=== PATIENT | male | born 1955 | race Caucasian/White ===

== ENCOUNTER 2018-02-24 06:12 | Inpatient (IN) ==
[~2018-02-24 06:12] MED LIST: Vancomycin 1,000 MG, Sodium Chloride IRRigation 1,000 ML IR ONE
[2018-02-24] MEDS ORDERED: CeFAZolin Syr 2,000MG/20 ML 2,000 MG/20 ML SYRINGE IVPB ONE (06:30)
[2018-02-24] MEDS ORDERED: Lidocaine -MPF 1% 2 ML VIAL ID ONE (06:32)
[2018-02-24] MEDS ORDERED: Albuterol 2.5 MG/3 ML NEBULIZER IH ONE (06:32)
[2018-02-24] MEDS ORDERED: Ringers Solution, Lactated 1,000 ML IVC SCH (06:45)
[2018-02-24] MEDS ORDERED: Bupivacaine-MPF 0.25% 10 ML VIAL ONE (07:09)
[2018-02-24] MEDS ORDERED: Heparin 1,000 UNITS/500 mL 1,000 ML ONE (07:09)
[2018-02-24] MEDS ORDERED: Heparin 1,000 UNITS/500 mL 500 ML ONE ×2 (07:10→07:38)
[2018-02-24] MEDS ORDERED: *HR* Propofol 200 MG/20 ML VIAL IVP ONE (07:12)
[2018-02-24] MEDS ORDERED: *HR* Rocuronium Bromide 50 MG/5 ML VIAL ONE (07:12)
[2018-02-24] MEDS ORDERED: *HR* Midazolam HCl 2 MG/2 ML VIAL ONE (07:12)
[2018-02-24] MEDS ORDERED: Lidocaine -MPF 2% 2 ML VIAL ONE ×2 (07:12→07:49)
[2018-02-24] MEDS ORDERED: Ketorolac 30 MG/ML VIAL ONE (07:12)
[2018-02-24] MEDS ORDERED: Dexamethasone 4 MG/ML VIAL ONE (07:12)
[2018-02-24] MEDS ORDERED: Ondansetron 4 MG/2 ML VIAL ONE (07:12)
[2018-02-24] MEDS ORDERED: *HR* FentaNYL (PF) 100 MCG/2 ML VIAL ONE ×2 (07:12→10:34)
[2018-02-24] MEDS ORDERED: Lidocaine -MPF 4% 5 ML AMPUL ONE (07:13)
--- NOTE | 2018-02-24 07:19 | Anesthesia Evaluation PreOp ---
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 History: TIA (?) Other Medical History: Diabetes Type II (oral medications only) Anesthesia History: No Prior Anesthetic Complications Alcohol Use: none Drug use: none Medications and Allergies Acetaminophen [Tylenol] 1,000 mg PO Q6HR PRN #90 tablet 02/10/18 [Rx] Aspirin [Adult Aspirin] 81 mg PO DAILY 02/10/18 [History] Enoxaparin [Lovenox *PHARMACY [facility] BASED*] 100 mg SQ DAILY 02/10/18 [History] Gabapentin [Neurontin] 300 mg PO TID 02/10/18 [History] Lisinopril [Zestril] 20 mg PO BID 02/10/18 [History] Metformin HCl [Fortamet] 500 mg PO BID 02/10/18 [History] Simvastatin [Zocor] 40 mg PO HS 02/10/18 [History] Warfarin [Coumadin] 5 mg PO 1800 02/10/18 [History] cloNIDine HCl [CloNIDine HCl] 0.1 mg PO BID 02/10/18 [History] 3 Allergy/AdvReac Type Severity Reaction Status Date / Time No Known Allergies Allergy Verified 02/10/18 06:47 - Meds/Allergy Pre-op Review Medications Reviewed: Yes Allergies Reviewed: Yes Beta Blockers on Current Med List: No Anesthesia Results - Labs Laboratory Tests 02/06/18 02/06/18 02/10/18 12:37 12:37 07:07 WBC 9.7 Hgb 16.9 Hct 49.5 Plt Count 273 PT 11.0 D INR 1.0 D Sodium 138 Potassium 4.4 Chloride 103 Carbon Dioxide 30 H BUN 12 Creatinine 0.93 Est GFR ( Amer) > 60 Est GFR (Non-Af Amer) > 60 BUN/Creatinine Ratio 13 Glucose 95 Est Mean Plasma Glucose Hemoglobin A1c Calculated Osmolality 286 Calcium 10.0 02/23/18 14:37 WBC Hgb Hct Plt Count PT INR Sodium Potassium Chloride Carbon Dioxide BUN Creatinine Est GFR ( Amer) Est GFR (Non-Af Amer) BUN/Creatinine Ratio Glucose Est Mean Plasma Glucose 154 Hemoglobin A1c 7.0 H Calculated Osmolality Calcium - Imaging EKG: report reviewed, image reviewed (SINUS RHYTHM INDETERMINATE AXIS INCOMPLETE RIGHT BUNDLE BRANCH BLOCK [90+ ms QRS DURATION, TERMINAL R IN V1/V2, 40+ ms S IN I/aVL/V4/V5/V6]) Anesthesia Exam Last Vital Signs Temp 97.7 F 02/24/18 06:37 Pulse 77 02/24/18 06:37 Resp 18 02/24/18 07:02 BP 125/81 02/24/18 07:02 Pulse Ox 97 02/24/18 07:02 Weight: 93 kg NPO (# of Hours): > 8 hrs - HEENT Pupil (Motor): Pupils equal, EOMI Mallampati: II Teeth: Missing, Poor dentition Oral Opening: Greater than 3 - SAP ARCHITECT LOC: Oriented - Cardiac Rhythm: Regular Murmur: None - Pulmonary Breath Sounds: bilateral Clear Respiratory Effort: Symmetrical Anesthesia Assess/Plan ASA Score: 3 Modified Grant Scale for Level of Consciousness: Cooperative, oriented, and tranquil Anesthetic Plan: General Monitoring Plan: Standard Monitors, A-Line Recovery Plan: PACU
--- NOTE | 2018-02-24 07:29 | History & Physical Report ---
Date of Encounter: 02/24/18 Time of Encounter: 07:25 24 Hour HP Update - Instructions Instructions: If the History and Physical is less than 30 days old and was completed prior to A.M. admission and or procedure and has NOT been updated on calendar day of procedure please complete this update prior to performing procedure. - Update Patient reports changes in Medical Condition: No Changes in examination, assessment, or condition: No Changes in Medication: No Preop tests/diagnostics Reviewed: Yes Surgery Remains Indicated: Yes Consent for Planned Operative Procedure(s) Verified: Yes - Pre-Operative Checklist Preoperative Checklist Indicated: Yes Prophylactic Antibiotic Ordered: Yes (vancomycin due to risk of mrsa) Home Medications Include Beta Kelly: No Beta Kelly Taken Today (Day of Surgery): No Beta Kelly Taken Yesterday (Day Prior to Surgery): No Is VTE Prophylaxis Indicated?: Yes
[2018-02-24] MEDS ORDERED: Isovue-300 50 ML VIAL IVP ONE (07:43)
[2018-02-24] MEDS ORDERED: *HR* Phenylephrine 10 MG/ML VIAL ONE (08:29)
[2018-02-24] MEDS ORDERED: EPHEDrine 50 MG/ML VIAL ONE (08:39)
[2018-02-24] MEDS ORDERED: Vancomycin 1,000 MG VIAL ONE (08:49)
[2018-02-24] MEDS ORDERED: *HR* Morphine 2 MG/ML SYRINGE IVP PRN (10:49)
[2018-02-24] MEDS ORDERED: Albuterol 2.5 MG/3 ML NEBULIZER IH PRN (10:49)
[2018-02-24] MEDS ORDERED: *HR* Promethazine 25 MG/ML VIAL IVP PRN (10:49)
[2018-02-24] MEDS ORDERED: *HR* OxyCODONE Immed Rel 5 MG TABLET PO PRN ×2 (10:49→11:40)
[2018-02-24] MEDS ORDERED: Neostigmine Methylsulfate 3 MG/3 ML SYRINGE ONE (10:59)
--- NOTE | 2018-02-24 11:39 | Operative Note ---
Date of procedure: 02/24/18 Pre-op diagnosis: Peripheral vascular disease with disabling claudication Post-op diagnosis: same Procedure: 1. Abdominal aortogram 2. Left common iliac artery angioplasty with 8 x 40mm balloon. 3. Left external iliac artery 8 x 57mm stent placement. 4. Left common femoral to right common femoral artery bypass with 6mm PTFE graft. 5. Left deep femoral endarterectomy. 6. Right common femoral and deep femoral endarterectomy. Complications: None Anesthesia: GETA Surgeon: Nitin New Was there an seed laboratory assistant present: No Estimated blood loss (cc): 50 Specimen: bilateral femoral plaque Condition: stable Disposition: PACU Procedure in Detail: Indications: The patient is a 62year old male with a history of hypertension, hyperlipidemia, COPD and tobacco abuse. He also has a history of peripheral vascular disease with disabling claudication. The patient presented with severe symptoms. His right was a affected greater than his left. He underwent endograft which revealed occluded right common and external and common femoral stents that had been previously placed at another hospital. The angiogram also revealed left iliac artery stenosis. Revascularization was recommended to reduce his symptoms. Procedure: The patient was identified in the preoperative area. The risks, benefits, and alternatives of the procedure were discussed and all questions were answered. The patient was taken to the operating room and placed in supine position on the operating room table. After the induction of general endotracheal anesthesia, he was cleaned and draped in normal sterile fashion. An oblique incision was made over the right groin sharply. Hemostasis was obtained with electrocautery. Through a process of blunt, sharp, and electrocautery dissection, the right femoral vessels were dissected circumferentially and surrounded with vessel loops. An oblique incision was then made over the left groin sharply. Hemostasis was obtained with electrocautery. Through a process of blunt, sharp, and electrocautery dissection, the left femoral vessels were dissected circumferentially and surrounded with vessel loops. A graft was tunneled between the right and left femoral incisions. The patient then received 5000 units of heparin intravenously. After waiting adequate time for the heparin to circulate, the left femoral vessels were occluded by applying tension to the vessels loops. A large-bore needle was used to cannulate left common femoral artery. A Naviswiss wire was advanced into the aorta under fluoroscopic view. The needle was exchanged for a 6-Yoruba sheath. The sheath was flushed. Retrograde angiography was performed revealing common iliac artery stenosis as well as external iliac artery stenosis on the left. An 8 x 40 mm balloon was then advanced into the left common iliac artery. He had a pre-existing left common iliac stent. Balloon angioplasty was then performed on this test. Admitted on the revealed no evidence of hemodynamically residual stenosis within the stent. The patient separate left external iliac artery stenosis measuring proximal 70%. An 8 x 57 mm stent was selected. The stent was advanced over the wire position of carotid stenosis. Stent was then deployed in the usual fashion. A completion retrograde and a gram was not performed revealing no evidence of hemodynamically residual left external iliac stenosis. The wire and sheath were removed. A longitudinal incision was made in the left common femoral artery inclusive of the arterial puncture site. Strong pulsatile flow was noted from the external iliac artery. However, minimal retrograde flow was noted from the left deep femoral artery due to extensive stenotic deep femoral artery plaque. Using a dental freer, a left deep femoral artery endarterectomy were then performed. The endpoints was inspected and no elevated flap was noted. The lumen was flushed with heparinized saline. The graft was cut to fit the arteriotomy. The graft was then sutured in place with a running 6-0 Prolene. Flow was restored in the vessels were flushed through the graft. Heparinized saline was infused into the graft lumen. The graft was clamped with an atraumatic clamp. Flow was restored in the left femoral vessels. Tension was applied to rightoral artery vessel loops. An arteriotomy was made in the right common femoral artery. At this time, it was noted that nearly occlusive plaque extended from , femoral arteryough the deep and superficial femoral artery origins. Using a dental freer,right common and deep femoral endarterectomy was performed. Upon removal of the plaque, no elevated flaps were noted. Release of the vessel loops revealed collateral antegrade and retrograde flow. The loops were then applied to tension. The distal end of the graft was cut to fit the arterial defect. The graft was anastamosed with a running 6-0 Prolene. Prior to completing the anastamosis, right femoral vessels were flushed through the graft anastamosis and heparin was flushed into the lumen. The anastamosis was completed and flow was restored in the left lower extremity. Thrombin and gelfoam were used at the proximal anastamosis. Polyphasic signals were noted distal to the anastamoses. The wounds were irrigated with antibiotic-containing saline. Platelet rich and platelet poor plasma were infused into the wounds. Meticulous hemostasis was obtained throughout the wound with electrocautery. Wounds were reapproximated with layers of 2-0 and 3-0 Vicryl. Skin was reapproximated with 3-0 Monocryl. Sterile dressing was applied. The patient was extubated and taken to recovery room in stable condition.
[2018-02-24] MEDS ORDERED: Ondansetron 4 MG/2 ML VIAL IVP PRN ×2 (11:40→13:04)
[2018-02-24] MEDS ORDERED: *HR* HYDROcodone/Acet 5/325 mg TABLET PO PRN (11:40)
[2018-02-24] MEDS ORDERED: Naloxone 0.4 MG/ML INJ IVP PRN ×2 (11:40→13:04)
[2018-02-24] MEDS ORDERED: Acetaminophen 325 MG TABLET PO PRN ×2 (11:40→13:04)
[2018-02-24] MEDS ORDERED: OXYCODONE Oral CONC 10 MG/0.5 ML ORAL.SYG SL PRN ×2 (11:40)
[2018-02-24] MEDS ORDERED: *HR* Labetalol 20 MG/4 ML SYRINGE IVP PRN ×2 (11:40→13:04)
[2018-02-24] MEDS ORDERED: *HR* Metoprolol 5 MG/5 ML VIAL IVP SCH (12:00)
--- NOTE | 2018-02-24 12:48 | Anesthesia Evaluation Post Op ---
Date of Encounter: 02/24/18 Time of Encounter: 12:47 - Vital Signs Vital Signs: Last Vital Signs Temp 97.2 F L 02/24/18 12:38 Pulse 82 02/24/18 12:38 Resp 16 02/24/18 12:38 BP 115/65 02/24/18 12:38 Pulse Ox 98 02/24/18 12:38 - Lungs Lungs: Clear Ascult./Percussion - Airway Airway: Non-obstructed - Cardiovascular Regular Rate - Mental Status Mental Status: Alert & Oriented, Answers Appropriately - Pain Pain Scale: 2 - Nausea Vomiting Nausea Vomiting: Not Present - Hydration Hydration: Ice chips - Discharge PostOp Status: Transfer Patient to floor
[2018-02-24] MEDS ORDERED: Dextrose Gel 15 GM/37.5 ML TUBE PO PRN ×2 (13:04)
[2018-02-24] MEDS ORDERED: Nitroglycerin 0.4 MG TAB.SUBL SL SCH (13:04)
[2018-02-24] MEDS ORDERED: Gabapentin 300 MG CAPSULE PO PRN (13:04)
[2018-02-24] MEDS ORDERED: *HR* Dextrose 50 % in Water (Syg) 50 ML SYRINGE IVP PRN (13:04)
[2018-02-24] MEDS ORDERED: D5% in Water 1,000 ML IVC PRN (13:04)
[2018-02-24] MEDS: *HR* OxyCODONE Immed Rel 5 MG TABLET PO PRN ×2 (13:38→22:12)
[2018-02-24] MEDS ORDERED: CeFAZolin Pre 2,000 MG/100 ML 2,000 MG/100 ML BAG IVPB SCH (14:00)
[2018-02-24] MEDS: CeFAZolin Pre 2,000 MG/100 ML 2,000 MG/100 ML BAG IVPB SCH (17:44)
[2018-02-24] MEDS: *HR* Metoprolol 5 MG/5 ML VIAL IVP SCH (17:45)
[2018-02-24] MEDS: Insulin LISPRO 300 UNITS/3 ML VIAL SQ SCH (17:45)
[2018-02-24] MEDS: OXYCODONE Oral CONC 10 MG/0.5 ML ORAL.SYG SL PRN (17:57)
[2018-02-24] MEDS: *HR* HYDROcodone/Acet 5/325 mg TABLET PO PRN (18:33)
[2018-02-24] MEDS ORDERED: Vancomycin 0 MG in D5% in Water 250 ML IVPB ONE (19:00)
[2018-02-24] MEDS ORDERED: Insulin LISPRO 300 UNITS/3 ML VIAL SQ SCH (21:00)
[2018-02-24] MEDS: Lisinopril 20 MG TABLET PO SCH (22:12)
[2018-02-24] MEDS: cloNIDine HCl 0.1 MG TABLET PO SCH (22:12)
[2018-02-25] MEDS: CeFAZolin Pre 2,000 MG/100 ML 2,000 MG/100 ML BAG IVPB SCH ×2 (01:04→07:58)
[2018-02-25] MEDS: OXYCODONE Oral CONC 10 MG/0.5 ML ORAL.SYG SL PRN ×2 (01:05→10:20)
[2018-02-25] MEDS: *HR* Metoprolol 5 MG/5 ML VIAL IVP SCH ×2 (01:13→05:26)
[2018-02-25 04:21] LABS: Basophils % 0.1 %; Hematocrit 39.4 % (37.5-50.1); Hemoglobin 13.1 g/dL (12.9-16.9); Immature Granulocytes % 0.6 % (0-4); Lymphocytes # 1.1 K/mcL (0.6-4.6); Lymphocytes % 6.9 %; Mean Corpuscular HGB Conc 33.2 g/dL (31.6-35.5); Mean Corpuscular Hemoglobin 29.5 pg (28.0-33.3); Mean Corpuscular Volume 88.7 fL (83.0-100.0); Mean Platelet Volume 11.1 fL (9.4-12.4); Monocytes % 6.1 %; Neutrophils # 13.4 K/mcL (1.6-8.9); Platelet Count 246 K/mcL (140-400); Red Blood Count 4.44 M/mcL (4.19-5.50); Segmented Neutrophils % 86.3 %
[2018-02-25 04:41] LABS: BUN/Creatinine Ratio 17 (6-26); Blood Urea Nitrogen 16 mg/dL (8-23); Calcium 9.3 mg/dL (8.6-10.3); Carbon Dioxide 26 mEq/L (23-29); Chloride 105 mEq/L (98-107); Glucose 165 mg/dL (70-105); Osmolality,Calculated 289 (280-300); Potassium 4.8 mEq/L (3.5-5.1); Sodium 137 mEq/L (136-145); eGFR For African Americans > 60 (> 60); eGFR For Non-African Americans > 60 (> 60)
[2018-02-25] MEDS: *HR* HYDROcodone/Acet 5/325 mg TABLET PO PRN (05:25)
[2018-02-25] MEDS ORDERED: *HR* Heparin 5,000 UNIT/ML VIAL SQ SCH ×2 (06:00)
--- NOTE | 2018-02-25 06:16 | Discharge Summary ---
Orders not resulted at time of discharge: Pending orders 02/24/18 Red Blood Cells [BBK] Routine 02/24/18 11:27 Surgical Pathology [PTH] Routine Date of Encounter: 02/25/18 Time of Encounter: 07:45 - Discharge Diagnosis (1) Atherosclerosis of [place] arteries of extremities with intermittent claudication, bilateral legs Priority: Primary Status: Chronic Comments: The patient is postoperative day 1 after left iliac angioplasty and stent placement, bilateral femoral endarterectomy and femoral to femoral artery bypass grafting. He reports his legs feel better. He is healing well. He is able to ambulate. His pain is well-controlled. He will be discharged today. (2) Essential hypertension Priority: Secondary Status: Chronic Comments: He was counseled regarding atherosclerotic risk factor reduction. (3) Mixed hyperlipidemia Priority: Secondary Status: Chronic (4) COPD (chronic obstructive pulmonary disease) Priority: Secondary Status: Chronic Qualifiers: COPD type: emphysema Emphysema type: panlobular Qualified Code(s): J43.1 - Panlobular emphysema (5) Tobacco abuse Priority: Secondary Status: Chronic Comments: He was counseled any smoking cessation. - Hospital Course Hospital course: Mr. De Leon is a 62 year old male was admitted on 02/24/2018. He states the operating room where he underwent left iliac antroplasty and stent placement, bilateral femoral endarterectomy and a femoral to femoral artery bypass. He tolerated the procedure well. He was discharged home in stable condition on postoperative day #1 without competitions. Time spent discussing smoking cessation with patient: 3 to 10 minutes - Time Spent with Patient Total time spent providing and/or coordinating discharge services: - Discharge Medications Prescriptions: OxyCODONE/APAP 5/325 [Percocet 5/325 MG] 1 each PO Q6HR PRN 7 Days #25 tablet PRN Reason: Postoperative pain Clopidogrel [Plavix] 75 mg PO DAILY #30 tablet Home Medications: Aspirin [Adult Aspirin] 81 mg PO DAILY 02/10/18 [History] Gabapentin [Neurontin] 300 mg PO TID PRN 02/10/18 [History] Lisinopril [Zestril] 20 mg PO BID 02/10/18 [History] Metformin HCl [Fortamet] 500 mg PO BID 02/10/18 [History] Simvastatin [Zocor] 40 mg PO HS 02/10/18 [History] cloNIDine HCl [CloNIDine HCl] 0.1 mg PO BID 02/10/18 [History] Albuterol Sulfate [Proair Hfa] 2 puff IH Q6HR 02/24/18 [History] Nitroglycerin [Nitrostat] 0.4 mg SL Q5MIN 02/24/18 [History] Clopidogrel [Plavix] 75 mg PO DAILY #30 tablet 02/25/18 [Rx] OxyCODONE/APAP 5/325 [Percocet 5/325 MG] 1 each PO Q6HR PRN 7 Days #25 tablet [Rx] Allergies/Adverse Reactions: 3 Allergy/AdvReac Type Severity Reaction Status Date / Time No Known Allergies Allergy Verified 02/10/18 06:47 Date of admission: 02/24/18 13:03 Primary care physician: Zay Betancourt MD Procedure(s) Performed: 1. Abdominal aortogram 2. Left common iliac artery angioplasty with 8 x 40mm balloon. 3. Left external iliac artery 8 x 57mm stent placement. 4. Left common femoral to right common femoral artery bypass with 6mm PTFE graft. 5. Left deep femoral endarterectomy. 6. Right common femoral and deep femoral endarterectomy. Discharging clinician: Nitin New Anticipated date of discharge: 02/25/18 Exam Vital Signs, Last 4 Hours Temp Pulse Resp BP Pulse Ox 02/25/18 03:24 98.2 F 75 18 101/58 91 General: Present: Conversant, No Apparent Distress HEENT: Present: Pupils equal Cardiac: Present: Reg Rate and Rhythm Lungs: Present: Normal Breath Sounds Neuro: Present: Alert and responsive, No focal deficits noted Abdomen: Present: Soft, Non-tender Vascular: Present: Normal capillary refill, Pulse, normal (Pedal signals present bilaterally.), Surgical incisions (Into this is clean dry and intact without erythema or drainage. No hematoma). Absent: Cyanosis, Edema - Patient Status Disposition: Home, Self-Care Condition: Good Functional capacity at discharge: independent ambulation Overall status at discharge: patient is back to baseline - Discharge Instructions Instructions: Peripheral Vascular Disorders (DC), Meal Planning with Diabetes Exchanges (DC) Follow Up With: Nitin New MD [Partnered Physician] - 03/10/18 2:30 pm Zay Betancourt MD [Primary Care Provider] - 03/04/18 10:10 am Additional Instructions: May remove bandages and shower on 02/26/2018. Wash wounds gently and pat to dry. Applied dry gauze to wounds daily for 7 days. No tub baths or swimming until 03/22/2018. Call Dr. New at [phone] with questions or concerns. - Diet and Activity Activity: increase activity as tolerated Diet: advance to your usual diet - VTE Documentation of Mechanical Device: Intermittent pneumatic compression device
[2018-02-25 07:35] VITALS: BP 117/71
[2018-02-25] MEDS: Insulin LISPRO 300 UNITS/3 ML VIAL SQ SCH (07:57)
[2018-02-25] MEDS: cloNIDine HCl 0.1 MG TABLET PO SCH (07:58)
[2018-02-25] MEDS: Lisinopril 20 MG TABLET PO SCH (07:58)
[2018-02-25] MEDS: *HR* OxyCODONE Immed Rel 5 MG TABLET PO PRN (08:53)
[2018-02-25] MEDS ORDERED: Aspirin Enteric Coated 81 MG Tablet PO SCH (09:00)
== END 2018-02-25 10:25 | disposition home or self-care (01) | DRG 181 ==
LOC: SAMDAY 06:12 → 2NNU 13:03
PROVIDERS: ADMIT Surgery; ATTEND Surgery
PROC: VASFFBG (ICD-10-PCS; 2018-02-24 07:45)